=== PATIENT | female | born 1950 | race Caucasian/White ===

== ENCOUNTER 2021-05-13 22:00 | Inpatient (IN) | payer MEDICARE, SELFPAY ==
--- NOTE | ~2021-05-13 | XR_ITS ---
XR hip RT 2V w AP pelvis DATE: 05/13/2021 22:43 INDICATION: Right hip fracture TECHNIQUE: AP pelvis. AP and crosstable lateral views of right hip COMPARISON: None FINDINGS: There is a minimally displaced and impacted right subcapital femoral neck fracture. No evidence of left or right hip dislocation. The pubic symphysis and sacroiliac joints are intact. Levoscoliosis and degenerative change of the lumbar spine. Diffuse osteopenia. IMPRESSION: Right subcapital femoral neck fracture Reviewed, dictated and finalized at location A.
--- NOTE | ~2021-05-13 | XR_ITS ---
EXAMINATION: XR surgery orthopedic DATE: 05/14/2021 10:02 INDICATION: Right hip pinning TECHNIQUE: 2 fluoroscopic images of the right hip were obtained in AP and frog-leg lateral positions during procedure performed by Dr. Robins. Radiologist was not present for the imaging or procedure. The amount of fluoroscopy time used during this procedure was 0.7 minutes. COMPARISON: 05/13/2021 FINDINGS: Interval fixation with 3 lag screws across a subcapital fracture of the proximal left femur with mild dorsolateral impaction injury. Alignment remains near-anatomic. No other fractures identified. Mild osteoarthritis of the right hip. IMPRESSION: 1. Lag screw fixation of a subcapital fracture of the proximal right femur which remains in near-magdaleno omic alignment. Reviewed, dictated and finalized at location A. IMPRESSION: 1. Lag screw fixation of a subcapital fracture of the proximal right femur whic h remains in near-anatomic alignment.
--- NOTE | ~2021-05-13 | XR_ITS ---
XR chest 1V DATE: 05/13/2021 22:43 INDICATION: Preoperative evaluation TECHNIQUE: AP chest COMPARISON: None FINDINGS: A very large hiatal hernia is noted. Normal heart size. Aortic arch calcification. No hilar or mediastinal enlargement. No pulmonary infiltrate or consolidation, pleural effusion or pulmonary vascular congestion or pneumo thorax. Diffuse osteopenia. There is dextroscoliosis of the thoracic spine. IMPRESSION: No active cardiac pulmonary disease Aortic atherosclerosis Very large hiatal hernia Reviewed, dictated and finalized at location A.
[2021-05-13 21:45] VITALS: BMI 27.0
[2021-05-13 21:46] VITALS: BP 107/58; PULSE 86; RESP 20; TEMP 36.2; O2SAT 97
--- NOTE | 2021-05-13 22:08 | PM.IMHP ---
H&P: HPI History of Present Illness Date/Time: 05/13/21 22:08 This is a 70-year-old female patient who is a direct admit from [facility]. The patient stated that she was walking down 4 steps and when she got to the 2nd step she felt that maybe her toe got stuck on something and then she slid down the last 2 steps and fell on her right hip. She is not on any blood thinners. She denies hitting her head. The patient stated she really did have any pain and she was able to pull herself off the ground but she was not able to ambulate on the right leg. She could not apply any weight to it she could not bear weight. Due to weakness not because of the discomfort. She did have a hip x-ray two view within without pelvis which shows an impacted mildly angulated subcapital right femoral neck fracture. She was seen in ER by her primary care doctor Dr. reyna (who works as pcp and er) . the patient is alert orientated x3. She did recognize her physician which she saw him in the emergency room. The patient was refusing to take any pain medication. However the nurses explained to her at the outside hospital that she would be transported from the ER bed to a gurney to be transported to [facility]. The patient stated she has not had any previous surgeries and was anxious about coming to [place] and having some surgery. Dr. Robins had been notified and agrees to the consult on the patient according to the ER physician from the outside facility. The patient's blood pressure was initially high but it is thought that this was due to anxiety. She does have hypertension however repeat blood pressures were normal. 152/77. The patient was also tested for COVID-19 and was found to be negative. The patient did take Tylenol Extra Strength tablet at the outside facility. The patient denies hitting her head or losing consciousness. She has no other complaints. The patient is being admitted to inpatient services on the date of service of 05/13/2021. Chief Complaint: Right hip weakness with fall Review of Systems Review of Systems: All systems reviewed & are unremarkable except as noted in HPI and below Constitutional: Constitutional: Reports as per HPI and Reports no additional constitutional complaints Eyes: Eyes: Reports as per HPI and Reports no additional eye complaints ENT: Reports system reviewed and no additional complaints, except as documented and Reports Normal hearing present Cardiovascular: Cardiovascular: Reports no additional cardiovascular complaints Respiratory: Respiratory: Reports no additional respiratory complaints and Reports no additional respiratory complaints Gastrointestinal: Gastrointestinal: Reports as per HPI and Reports no additional gastrointestinal complaints Musculoskeletal: Musculoskeletal: Reports no additional musculoskeletal complaints Integumentary/Breasts: Skin/Breast: Reports system reviewed and no additional complaints, except as docu and Reports as per HPI Neurologic: Reports system reviewed and no additional complaints, except as documented, Reports as per HPI and Reports Normal hearing present Psychiatric: Psychiatric: Reports no additional psychiatric complaints and Reports as per HPI Endocrine: Endocrine: Reports no additional endocrine complaints Hematologic/Lymphatic: Hematologic/Lymphatic: Reports no additional hematologic/lymphatic complaints Allergic/Immunologic: Allergic/Immunologic: Reports no additional allergic/immunologic complaints [facility] Past Medical History Medical History (Updated 05/13/21 @ 22:17 by Vannessa Ramirez NP) Anemia Chronic lower back pain History of humerus fracture on the left which was conservatively treated by placing in a sling Hyperlipidemia Hypertension Hypothyroidism Osteoarthritis Osteoporosis Overactive bladder Surgical History Surgical History (Updated 05/13/21 @ 22:17 by Vannessa Ramirez NP) No pertinent past surgical history Family Hi
[2021-05-14] VITALS (16 sets, daily range): BP systolic 105–132; BP diastolic 56–80; PULSE 81–116; RESP 14–18; TEMP 35.9–36.7; O2SAT 92–100
[2021-05-14] MEDS: LACTATED RINGERS 1,000 ML 100 ML IV CONT (00:30)
[2021-05-14] MEDS: LOVASTATIN 20 MG TABLET PO ×2 (00:33→20:42)
[2021-05-14] MEDS: CYCLOBENZAPRINE HCL 5 MG TABLET PO (00:42)
[2021-05-14 01:12] LABS: Basophils Absolute Auto 0.1 K/mm3 (0.0-0.1); Basophils Percent Auto 0.8 % (0.2-1.2); Eosinophils Absolute Auto 0.1 K/mm3 (0-0.3); Eosinophils Percent Auto 0.9 % (0-4.4); Hematocrit 39.7 % (37.0-47.0); Hemoglobin 13.7 g/dL (12.0-15.0); Immature Granulocyte Absolute 0.03 K/mm3 (0.00-0.031); Immature Granulocyte Percent A 0.3 % (0-0.5); Lymphocytes Absolute Auto 0.85 K/mm3 (0.9-3.2); Lymphocytes Percent Auto 9.9 % (18.3-44.2); Mean Corpuscular HGB Conc 34.5 g/dl (32-36); Mean Corpuscular Hemoglobin 31.1 pg (26-34); Mean Platelet Volume 9.7 fl (7.4-10.4); Monocytes Absolute Auto 0.5 K/mm3 (0.1-0.6); Monocytes Percent Auto 5.7 % (2.6-8.5); Neutrophils Absolute Auto 7.1 K/mm3 (1.3-6.7); Neutrophils Percent Auto 82.4 % (45.5-73.1); Platelet Count Result 218 k/mm3 (150-375); Red Blood Count 4.41 M/mm3 (4.2-5.4); Red Cell Distribution Width 11.9 % (11.5-14.5); White Blood Count 8.6 K/mm3 (4.5-10.0)
[2021-05-14 01:14] LABS: Add Urine Microscopic? NO; Appearance Urine Clear (Clear); Bilirubin Urine Negative (Negative); Blood Urine Negative (Negative); Color Urine Yellow (Yellow); Glucose Urine UA Negative (Negative); Ketones Urine Negative (Negative); Leukocyte Esterase Ur Negative LEU/UL (Negative); Nitrate Urine Negative (Negative); Protein Urine Negative (Negative); Specific Grav Ur 1.014 (1.001-1.035); Urobilinogen Urine Negative mg/dL (<2.0)
[2021-05-14 01:27] LABS: Anion Gap 7 mmol/L (8-16); Blood Urea Nitrogen 25 mg/dL (7-17); Carbon Dioxide 27 mmol/L (22-30); Chloride 98 mmol/L (98-107); Estimated CRCL calculation 41 ml/min; Estimated Glomerular Filt Rate 49; Glucose 128 mg/dL (65-110); Magnesium 1.7 mg/dL (1.6-2.3); Potassium 3.9 mmol/L (3.4-5.0); Sodium 132 mmol/L (137-145)
[2021-05-14] MEDS: LEVOTHYROXINE SODIUM 50 MCG TABLET PO (05:38)
--- NOTE | 2021-05-14 06:15 | ADMGEN ---
On 05/13/21 @ 2114 This patient, Veronika Carter, was admitted to 2 Medical Room 251-. Patient/family oriented to hospital policies and general routines including ID bracelet, bed and alarms, visiting hours, pain management, procedures, bathroom and other care routines, personal items, smoking policy, room service/diet, and visiting hours. Information on how to activate the Rapid Response Team has been discussed. Patient/Family are encouraged to report perceived risks to care and to ask questions if they do not understand what they are told or what they should do.
[2021-05-14 06:50] LABS: Alanine Aminotransferase 12 U/L (4-35); Albumin Level 4.2 g/dL (3.5-5.1); Alkaline Phosphatase 74 U/L (38-126); Anion Gap 5 mmol/L (8-16); Aspartate Amino Transferase 26 U/L (14-36); Bilirubin,Total 1.3 mg/dL (0.2-1.3); Blood Urea Nitrogen 21 mg/dL (7-17); Calcium 9.7 mg/dL (8.4-10.2); Carbon Dioxide 30 mmol/L (22-30); Chloride 99 mmol/L (98-107); Estimated CRCL calculation 45 ml/min; Estimated Glomerular Filt Rate 55; Glucose 106 mg/dL (65-110); Potassium 3.7 mmol/L (3.4-5.0); Sodium 134 mmol/L (137-145)
--- NOTE | 2021-05-14 08:22 | PC.NURSE ---
Report called to Adam RN OR Nurse.
--- NOTE | 2021-05-14 08:30 | PC.NURSE ---
To OR via bed.
--- NOTE | 2021-05-14 08:46 | WPDANESEPP ---
Anes - Eval Pre Procedure Procedure: Operation Date: 05/14/21 09:30 Proposed Procedures p Hip Pinning Cannulated Screws(Right) - Hay Robins MD Date/Time: 05/14/21 08:46 Surgeon: Shimon Preop Diagnosis: right femoral neck fracture Pre Op Diagnosis: Right Femoral Neck Fracture Patient Data Age: 70 Gender: F Height: 1.7 m Weight: 78.3 kg Last Vital Signs Temp 98.1 F 05/14/21 03:33 Pulse 81 05/14/21 03:33 Resp 18 05/14/21 08:00 BP 105/59 L 05/14/21 03:33 Pulse Ox 97 05/14/21 08:00 Allergies Allergy/AdvReac Type Severity Reaction Status Date / Time No Known Allergies Allergy Verified 05/13/21 21:53 Home Medications Medication Instructions Recorded Confirmed Type alendronate [Fosamax] 70 mg PO WEEKLY 05/13/21 05/13/21 History amlodipine 10 mg PO DAILY 05/13/21 05/13/21 History celecoxib 200 mg PO DAILY PRN 05/13/21 05/13/21 History cyclobenzaprine 5 mg PO HS PRN 05/13/21 05/13/21 History ergocalciferol (vitamin D2) 1,250 mcg PO WEEKLY 05/13/21 05/13/21 History [Vitamin D2] ferrous sulfate 325 mg PO TID 05/13/21 05/13/21 History levothyroxine [Synthroid] 50 mcg PO DAILY 05/13/21 05/13/21 History lisinopril-hydrochlorothiazide 1 tablet PO BID 05/13/21 05/13/21 History lovastatin 20 mg PO HS 05/13/21 05/13/21 History solifenacin [Vesicare] 10 mg PO DAILY 05/13/21 05/13/21 History Laboratory Tests 05/14/21 05/14/21 05/14/21 00:59 01:01 01:01 WBC RBC Hgb Hct MCV MCH MCHC RDW Plt Count MPV Immature Gran % (Auto) Neut % (Auto) Lymph % (Auto) [place] % (Auto) Eos % (Auto) Baso % (Auto) Lymph # (Auto) [place] # (Auto) Eos # (Auto) Baso # (Auto) Abs Immat Gran (auto) Absolute Neuts (auto) Absolute Nucleated RBC Nucleated RBC % Sodium 132 mmol/L L mmol/L (137-145) Potassium 3.9 mmol/L mmol/L (3.4-5.0) Chloride 98 mmol/L mmol/L (98-107) Carbon Dioxide 27 mmol/L mmol/L (22-30) Anion Gap 7 mmol/L L mmol/L (8-16) BUN 25 mg/dL H mg/dL (7-17) Creatinine 1.10 mg/dL H mg/dL (0.7-1.0) Estim Creat Clear Calc 41 ml/min ml/min Estimated GFR 49 L (59 - ) Glucose 128 mg/dL H mg/dL (65-110) Calcium 10.0 mg/dL mg/dL (8.4-10.2) Magnesium 1.7 mg/dL mg/dL (1.6-2.3) Total Bilirubin AST ALT Alkaline Phosphatase Total Protein Albumin TSH (Reflex) Urine Color Yellow (Yellow) Urine Appearance Clear (Clear) Urine pH 5.0 (5.0-9.0) Ur Specific [place] 1.014 (1.001-1.035) Urine Protein Negative mg/dL mg/dL (Negative) Urine Glucose (UA) Negative mg/dL mg/dL (Negative) Urine Ketones Negative mg/dL mg/dL (Negative) Ur Blood (Man) Negative (Negative) Urine Nitrate Negative (Negative) Urine Bilirubin Negative (Negative) Urine Urobilinogen Negative mg/dL mg/dL (<2.0) Leukocyte Esterase Rfl Negative NIKKI/UL NIKKI/UL (Negative) Blood Type Antibody Screen 05/14/21 05/14/21 05/14/21 01:01 01:01 06:07 WBC 8.6 K/mm3 K/mm3 (4.5-10.0) RBC 4.41 M/mm3 M/mm3 (4.2-5.4) Hgb 13.7 g/dL g/dL (12.0-15.0) Hct 39.7 % % (37.0-47.0) MCV 90.0 fl fl (80-100) MCH 31.1 pg pg (26-34) MCHC 34.5 g/dl g/dl (32-36) RDW 11.9 % % (11.5-14.5) Plt Count 218 k/mm3 k/mm3 (150-375) MPV 9.7 fl fl (7.4-10.4) Immature Gran % (Auto) 0.3 % % (0-0
--- NOTE | 2021-05-14 08:49 | ECG_ITS ---
Measurements Intervals [place] Rate: 93 P: 53 NM: 167 QRS: 4 QRSD: 102 T: 9 QT: 348 QTc: 433 Interpretive Statements SINUS RHYTHM HIGH LATERAL INFARCT, AGE INDETERMINATE NONSPECIFIC ST & T-WAVE ABNORMALITY- ANT/INF LEADS BASELINE WANDER- I, II ABNORMAL ECG Electronically Signed On 05-14-2021 16:23:28 CDT by Gokul Anne D.O.
--- NOTE | 2021-05-14 08:53 | PM.CNOR ---
Assessment and Plan Assessment and plan (1) Subcapital fracture of neck of right femur: Qualifiers: Encounter type: initial encounter Fracture type: closed Qualified Code(s): S72.011A - Unspecified intracapsular fracture of right femur, initial encounter for closed fracture Code(s): S72.011A - Unspecified intracapsular fracture of right femur, initial encounter for closed fracture Status: Acute Assessment and Plan: 70-year-old female with an impacted right subcapital femoral neck fracture. I discussed with her the rationale for surgical stabilization with pinning in-situ. Plan on proceeding today. Risks and potential complications were discussed in detail and questions answered. History of Present Illness HPI Consult date: 05/14/21 Consult reason: fracture Chief complaint: Right Femoral Neck Fracture Narrative: 70-year-old female who lives in [place]. She fell going down her stairs yesterday when she tripped. She suffered a right femoral neck fracture. She was initially taken to the hospital and then daily a but apparently they are unable to fix femoral neck fractures she was transferred to [facility] for further evaluation and management. No other injuries with this occurrence. No loss of consciousness, no chest pain, no shortness of breath. Patient articulates to pain in her right hip and thigh. Review of Systems Constitutional: Constitutional: Denies chills and Denies fever(s) ENT: Reports system reviewed and no additional complaints, except as documented Cardiovascular: Cardiovascular: Denies chest pain Respiratory: Respiratory: Reports no additional respiratory complaints Gastrointestinal: Gastrointestinal: Denies abdominal pain PMFSH Past Medical History Medical History (Updated 05/14/21 @ 08:58 by Hay Robins MD) Anemia Chronic lower back pain History of humerus fracture on the left which was conservatively treated by placing in a sling Hyperlipidemia Hypertension Hypothyroidism Osteoarthritis Osteoporosis Overactive bladder Subcapital fracture of neck of right femur Surgical History Surgical History No pertinent past surgical history Family History Family History Father Acute myocardial infarction Congestive heart failure Hypertension Mother Diabetes mellitus Social History Social History Social History: the patient is lifelong nonsmoker. She does not use any alcohol marijuana or illicit drugs. She has 2 children. 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 She lives with her and he is the durable power civil rights attorney for healthcare. Code status full code Smoking status: Never smoker Alcohol intake: never Substance use: never Substance use type: does not use Spiritual care concerns: No Meds Home Medications and Allergies Home Medications Medication Instructions Recorded Confirmed Type alendronate [Fosamax] 70 mg PO WEEKLY 05/13/21 05/13/21 History amlodipine 10 mg PO DAILY 05/13/21 05/13/21 History celecoxib 200 mg PO DAILY PRN 05/13/21 05/13/21 History cyclobenzaprine 5 mg PO HS PRN 05/13/21 05/13/21 History ergocalciferol (vitamin D2) 1,250 mcg PO WEEKLY 05/13/21 05/13/21 History [Vitamin D2] ferrous sulfate 325 mg PO TID 05/13/21 05/13/21 History levothyroxine [Synthroid] 50 mcg PO DAILY 05/13/21 05/13/21 History lisinopril-hydrochlorothiazide 1 tablet PO BID 05/13/21 05/13/21 History lovastatin 20 mg PO HS 05/13/21 05/13/21 History solifenacin [Vesicare] 10 mg PO DAILY 05/13/21 05/13/21 History Allergies Allergy/AdvReac Type Severity Reaction Status Date / Time No Known Allergies Allergy Verified 05/13/21 21:53 Vital Signs Vital Signs - 24 hr 05/13/21 21:46 05/14/21 00:10 05/14/21 03:33 Temperature 97.2 F L
--- NOTE | 2021-05-14 08:54 | P.PNAN_ITS ---
Anes - Initial Pre Proc Eval Procedure: Operation Date: 05/14/21 09:30 Proposed Procedures p Hip Pinning Cannulated Screws(Right) - Hay Robins MD Date/Time: 05/14/21 08:54 Surgeon: Ani Arce PA-C Pre Op Diagnosis: Right Femoral Neck Fracture Patient Data Age: 70 Gender: F Height: 1.7 m Weight: 78.3 kg Last Vital Signs Temp 98.1 F 05/14/21 03:33 Pulse 81 05/14/21 03:33 Resp 18 05/14/21 08:00 BP 105/59 L 05/14/21 03:33 Pulse Ox 97 05/14/21 08:00 Allergies Allergy/AdvReac Type Severity Reaction Status Date / Time No Known Allergies Allergy Verified 05/13/21 21:53 Home Medications Medication Instructions Recorded Confirmed Type alendronate [Fosamax] 70 mg PO WEEKLY 05/13/21 05/13/21 History amlodipine 10 mg PO DAILY 05/13/21 05/13/21 History celecoxib 200 mg PO DAILY PRN 05/13/21 05/13/21 History cyclobenzaprine 5 mg PO HS PRN 05/13/21 05/13/21 History ergocalciferol (vitamin D2) 1,250 mcg PO WEEKLY 05/13/21 05/13/21 History [Vitamin D2] ferrous sulfate 325 mg PO TID 05/13/21 05/13/21 History levothyroxine [Synthroid] 50 mcg PO DAILY 05/13/21 05/13/21 History lisinopril-hydrochlorothiazide 1 tablet PO BID 05/13/21 05/13/21 History lovastatin 20 mg PO HS 05/13/21 05/13/21 History solifenacin [Vesicare] 10 mg PO DAILY 05/13/21 05/13/21 History Laboratory Tests 05/14/21 05/14/21 05/14/21 00:59 01:01 01:01 WBC RBC Hgb Hct MCV MCH MCHC RDW Plt Count MPV Immature Gran % (Auto) Neut % (Auto) Lymph % (Auto) [place] % (Auto) Eos % (Auto) Baso % (Auto) Lymph # (Auto) [place] # (Auto) Eos # (Auto) Baso # (Auto) Abs Immat Gran (auto) Absolute Neuts (auto) Absolute Nucleated RBC Nucleated RBC % Sodium 132 mmol/L L mmol/L (137-145) Potassium 3.9 mmol/L mmol/L (3.4-5.0) Chloride 98 mmol/L mmol/L (98-107) Carbon Dioxide 27 mmol/L mmol/L (22-30) Anion Gap 7 mmol/L L mmol/L (8-16) BUN 25 mg/dL H mg/dL (7-17) Creatinine 1.10 mg/dL H mg/dL (0.7-1.0) Estim Creat Clear Calc 41 ml/min ml/min Estimated GFR 49 L (59 - ) Glucose 128 mg/dL H mg/dL (65-110) Calcium 10.0 mg/dL mg/dL (8.4-10.2) Magnesium 1.7 mg/dL mg/dL (1.6-2.3) Total Bilirubin AST ALT
--- NOTE | 2021-05-14 08:59 | WPDHPUPDATE1 ---
History and Physical Update Update Date/Time: 05/14/21 08:59 History and Physical has been reviewed, including an updated exam of the patient. There are NO changes in the patient's condition. Risks, benefits, and alternatives have been discussed and questions answered. Patient agrees to proceed with procedure.
[2021-05-14] MEDS: ceFAZolin 2 GM/D5W 50 ML 2 GM/50 ML BAG IVPB ×2 (09:03→16:56)
[2021-05-14] MEDS: LIDO 1%/EPINEPHRINE 1:100,000 50 ML VIAL 10 ML INFILTRATE (09:46)
[2021-05-14] MEDS: LACTATED RINGERS 1,000 ML 30 ML IV CONT (10:17)
--- NOTE | 2021-05-14 10:23 | P.OP_ITS ---
Procedure Note - Detailed Date of Procedure 05/14/21 Pre-op Diagnosis Right Femoral Neck Fracture Post-op Diagnosis same Procedure Performed Pinning in-situ right femoral neck fracture Surgeon Hay Robins MD [employer] Rashida Eisenberg Anesthesia general Description of Procedure The patient was identified and proper site identified. She was taken to the operating room and after general anesthetic induction and intubation, she was transferred over to the fracture table positioning her supine the usual manner for fixation of right hip fracture. Care was taken to properly pad and position her torso and extremities. The subcapital femoral neck fracture was examined fluoroscopically and noted to be in the unchanged impacted position. The right hip and thigh was prepped and draped in usual sterile fashion. 10 ml of 1% lidocaine and epinephrine solution was infiltrated into the subcutaneous tissue and area incision. A longitudinal incision was made over the proximal aspect of the femur laterally. Subcutaneous tissue sharply dissected down to the ITB band which was divided in line with the incision. Under fluoroscopic visualization, the three guide pins were placed into the femoral neck and head. Over these guide pins the 6.5 cannulated screws were placed and then the pins removed. This was done with fluoroscopic visualization and then assess fluoroscopically to ensure the joint was not violated. Hardware position was satisfactory. The wound was irrigated with sterile saline. IT band was reapproximated with 0 Vicryl in the deeper layers of the subcu also with 0 Vicryl suture. Skin reapproximated with three 0 V lock and rosey. Sterile dressing was applied. She tolerated the procedure well. She was transferred back to the cart, awakened and extubated then taken to the recovery area in stable condition. There were no known intraoperative complications. Estimated blood loss 10 milliliters. She received perioperative antibiotics. Estimated Blood Loss 10 Drains No Packing No Pathology none sent Complications No immediate complications Condition stable Disposition PACU
--- NOTE | 2021-05-14 11:20 | PC.NURSE ---
Returned from OR via bed.
[2021-05-14] MEDS: hydroCHLOROthiazide 12.5 MG CAPSULE PO ×2 (11:35→20:42)
[2021-05-14] MEDS: amLODIPine BESYLATE 5 MG TABLET 10 MG PO (11:36)
[2021-05-14] MEDS: FERROUS SULFATE 324 MG TABLET PO ×2 (11:36→20:42)
[2021-05-14] MEDS: SOLIFENACIN 5 MG TABLET 10 MG PO (11:36)
[2021-05-14] MEDS: lisinopriL 20 MG TABLET PO ×2 (11:37→20:42)
[2021-05-14] MEDS: CELECOXIB 200 MG CAPSULE PO (11:37)
--- NOTE | 2021-05-14 14:51 | PM.IMPN ---
Progress Note: A&P Assessment and Plan (1) Subcapital fracture of neck of right femur: Qualifiers: Encounter type: initial encounter Fracture type: closed Qualified Code(s): S72.011A - Unspecified intracapsular fracture of right femur, initial encounter for closed fracture Code(s): S72.011A - Unspecified intracapsular fracture of right femur, initial encounter for closed fracture Status: Acute Assessment and Plan: Due to mechanical fall -status post right femoral pinning postop day 0 - Xarelto will be started tomorrow for DVT prophylaxis - PT and OT per ortho - will remove Dotson catheter tomorrow (2) Hypertension: Code(s): I10 - Essential (primary) hypertension Status: Chronic Assessment and Plan: last blood pressure 132/63 - continue amlodipine, hydrochlorothiazide and lisinopril (3) Hyperlipidemia: Code(s): E78.5 - Hyperlipidemia, unspecified Status: Chronic Assessment and Plan: chronic - continue lovastatin (4) Osteoporosis: Code(s): M81.0 - Age-related osteoporosis without current pathological fracture Status: Acute Assessment and Plan: will need further recommendations on Fosamax during this healing period (5) Hypothyroidism: Code(s): E03.9 - Hypothyroidism, unspecified Status: Chronic Assessment and Plan: TSH 2.9 - continue levothyroxine (6) Osteoarthritis: Code(s): M19.90 - Unspecified osteoarthritis, unspecified site Status: Chronic (7) Overactive bladder: Code(s): N32.81 - Overactive bladder Status: Chronic Assessment and Plan: continue with VESIcare (8) Chronic lower back pain: Code(s): M54.50 - Low back pain, unspecified; G89.29 - Other chronic pain Status: Chronic Assessment and Plan: no acute findings for complaints, continue with cyclobenzaprine p.r.n. Time Spent With Patient Time with patient: 25 - 35 minutes Subjective Date/time seen: 05/14/21 14:51 Interval history: Pt is a 70-year-old female here for right hip fracture. Patient stated that she simply had a mechanical fall and denied lightheadedness, dizziness or chest pain prior to the fall. She is currently not in any pain and has no numbness or tingling. She is eating and drinking well. She denies fevers, chills, dysuria, diarrhea or constipation. Patient states she has always had a convex chest and this is not abnormal for her Review of Systems Review of Systems: All systems reviewed & are unremarkable except as noted in HPI and below Exam Narrative: General: Well developed well nourished patient in NAD HEENT: normocephalic Neck: supple Neuro: Alert and oriented x4 CV:RRR. convex chest with no erythema or pain. Resp:CTA Abd: Soft, non distended. No pain to palpation. Positive bowel sounds Extremities: right leg with bandage attached with no excessive erythema, bleeding or bruising. Pulses and sensation intact. Objective Data Vital Signs Vital Signs: Vital Signs - 24 hr 05/13/21 21:46 05/14/21 00:10 05/14/21 03:33 Temperature 97.2 F L 97.7 F 98.1 F Pulse Rate 86 90 81 Respiratory Rate 20 18 18 Blood Pressure 107/58 L 116/76 105/59 L Pulse Oximetry 97 97 97 05/14/21 08:00 05/14/21 10:17 05/14/21 10:30 Temperature 96.7 F L Pulse Rate 116 H 108 H Respiratory Rate 18 18 18 Blood Pressure 127/74 120/80 Pulse Oximetry 97 100 100 05/14/21 10:35 05/14/21 10:45 05/14/21 11:00 Temperature Pulse Rate 95 95 Respiratory Rate 18 14 Blood Pressure 115/65 114/70 Pulse Oximetry 96 97 96 05/14/21 11:15 05/14/21 11:25 05/14/21 11:30 Temperature 97.2 F L Pulse Rate 97 96 Respiratory Rate 16 18 16 Blood Pressure 119/71 105/71 Pulse Oximetry 95 92 95 05/14/21 11:40 05/14/21 12:10 05/14/21 13:10 Temperature 97.3 F L 97.5 F L 97.1 F L Pulse Rate 93 91 100 Respiratory Rate 18 16 18
[2021-05-14] MEDS: DOCUSATE SODIUM 100 MG CAPSULE PO (16:56)
[2021-05-14] MEDS: FAMOTIDINE 20 MG TABLET PO (20:42)
[2021-05-15] VITALS (9 sets, daily range): BP systolic 101–140; BP diastolic 58–89; PULSE 80–89; RESP 16–20; TEMP 36.2–36.7; O2SAT 92–97
[2021-05-15] MEDS: ceFAZolin 2 GM/D5W 50 ML 2 GM/50 ML BAG IVPB ×2 (00:31→08:02)
--- NOTE | 2021-05-15 01:13 | PC.NURSE ---
Daylight Savings Time For Daylight Savings Time Ending in the Fall - Clocks are moved back. For Daylight Savings Time Beginning in the Spring - Clocks are moved ahead. For [facility], the time of change occurs at 0200 hrs. Time is taken from the server programmer. This entry on the patient's chart recognizes the change in time reflected during documentation. Example: 2 entries for vital signs may be charted for 0200 hrs.
[2021-05-15] MEDS: LEVOTHYROXINE SODIUM 50 MCG TABLET PO (06:17)
--- NOTE | 2021-05-15 07:34 | PM.PNORT ---
Progress Note: A&P Assessment and Plan (1) Subcapital fracture of neck of right femur: Qualifiers: Encounter type: initial encounter Fracture type: closed Qualified Code(s): S72.011A - Unspecified intracapsular fracture of right femur, initial encounter for closed fracture Code(s): S72.011A - Unspecified intracapsular fracture of right femur, initial encounter for closed fracture Status: Acute Assessment and Plan: 70-year-old female postop day one right hip pinning. Doing well. Will likely need placement before being able to head home. Therapy will be initiated today. Following. Subjective Subjective Date/Time Seen: 05/15/21 07:34 Post Op day: 1 Principal diagnosis: Status post pinning in situ right subcapital femoral neck fracture Interval history: 70-year-old female who is postop day one for right hip pinning for impacted subcapital femoral neck fracture. Her overnight stay has been uneventful. She is not having that much discomfort in her right hip area. Exam Const: General: cooperative, comfortable and no acute distress Nutritional Appearance: well nourished Orientation/consciousness: patient oriented x3 Limitations: no limitations HENMT: Head: normal to inspection Ears: hearing grossly normal bilaterally Face and sinus: face symmetric Mouth: Yes moist mucous membranes Teeth and gingiva: poor dentition Eyes: Alignment and Position: alignment normal and position normal Sclera: sclerae normal Neck: Neck: normal visual inspection and nontender Chest: Chest palpation & inspection: normal inspection of the chest Resp: Effort & Inspection: normal respiratory effort and able to speak in complete sentences GI: Inspection: other ( Nondistended, nontender) Skin: General skin exam: normal color Rashes: no rashes Neuro: General: patient oriented x3 Cognition (Neuro): normal cognition Speech: normal speech Gait exam (Neuro): Other gait observations present Extrem: General: normal to inspection and other Other: Exam of the right hip shows a dry incision. Grossly motor and sensory function intact to right lower extremity but exam is limited somewhat secondary to right hip discomfort. Calves are negative. Psych: Appearance: grossly normal Mental Status: mental status grossly normal Objective Data Vital Signs Vital Signs: Vital Signs - 24 hr 05/14/21 10:17 05/14/21 10:30 05/14/21 10:35 Temperature 96.7 F L Pulse Rate 116 H 108 H Respiratory Rate 18 18 Blood Pressure 127/74 120/80 Pulse Oximetry 100 100 96 05/14/21 10:45 05/14/21 11:00 05/14/21 11:15 Temperature Pulse Rate 95 95 97 Respiratory Rate 18 14 16 Blood Pressure 115/65 114/70 119/71 Pulse Oximetry 97 96 95 05/14/21 11:25 05/14/21 11:30 05/14/21 11:40 Temperature 97.2 F L 97.3 F L Pulse Rate 96 93 Respiratory Rate 18 16 18 Blood Pressure 105/71 114/61 Pulse Oximetry 92 95 95 05/14/21 12:10 05/14/21 13:10 05/14/21 17:10 Temperature 97.5 F L 97.1 F L 97.6 F Pulse Rate 91 100 100 Respiratory Rate 16 18 18 Blood Pressure 115/56 L 132/63 120/62 Pulse Oximetry 95 94 96 05/14/21 21:03 05/15/21 00:05 05/15/21 01:03 CDT Temperature 97.5 F L 97.4 F L Pulse Rate 87 83 Respiratory Rate 16 20 Blood Pressure 116/63 126/68 Pulse Oximetry 94 92 95 05/15/21 04:03 Temperature 98.0 F Pulse Rate 86 Respiratory Rate 16 Blood Pressure 120/64 Pulse Oximetry 93 Intake/Output Intake/Output: Intake & Output 05/12/21 05/13/21 05/14/21 05/15/21 23:59 23:59 23:59 22:59 Intake Total 1730 / 1730 550 / 550 Output Total 1660 / 1660 1100 / 1100 Balance 70 / 70 -550 / -550 Meds/Results Medications: Active Medications Generic Name Dose Route Start Last Admin Trade Name Corrine PRN Reason Stop Dose Admin Acetaminophen 650 mg 05/14/21 11:18 Acetaminophen 325 Mg Tablet PO Q6H PRN Mild Pain (1-3) or Fever Hydrocodone Bitart/Acetaminophen 1 tab 05/14/21 11:18
--- NOTE | 2021-05-15 07:51 | PM.IMPN ---
Progress Note: A&P Assessment and Plan (1) Subcapital fracture of neck of right femur: Qualifiers: Encounter type: initial encounter Fracture type: closed Qualified Code(s): S72.011A - Unspecified intracapsular fracture of right femur, initial encounter for closed fracture Code(s): S72.011A - Unspecified intracapsular fracture of right femur, initial encounter for closed fracture Status: Acute Assessment and Plan: Due to mechanical fall -status post right femoral pinning postop day 1 - continue Xarelto for DVT prophylaxis - PT and OT per ortho - will remove Dotson catheter (2) Hypertension: Code(s): I10 - Essential (primary) hypertension Status: Chronic Assessment and Plan: last blood pressure 120/64 - continue amlodipine, hydrochlorothiazide and lisinopril (3) Hyperlipidemia: Code(s): E78.5 - Hyperlipidemia, unspecified Status: Chronic Assessment and Plan: chronic - continue lovastatin (4) Osteoporosis: Code(s): M81.0 - Age-related osteoporosis without current pathological fracture Status: Acute Assessment and Plan: Will hold fosamax for 2 months due to acute fracture per Dr. Robins's recommendations (5) Hypothyroidism: Code(s): E03.9 - Hypothyroidism, unspecified Status: Chronic Assessment and Plan: TSH 2.9 - continue levothyroxine (6) Osteoarthritis: Code(s): M19.90 - Unspecified osteoarthritis, unspecified site Status: Chronic (7) Overactive bladder: Code(s): N32.81 - Overactive bladder Status: Chronic Assessment and Plan: continue with VESIcare -voiding trial today (8) Chronic lower back pain: Code(s): M54.50 - Low back pain, unspecified; G89.29 - Other chronic pain Status: Chronic Assessment and Plan: no acute findings for complaints, continue with cyclobenzaprine p.r.n. Subjective Date/time seen: 05/15/21 07:51 Interval history: Pt is a 70-year-old female here for right hip fracture. Patient was seen today with no complaints. Pt denies nausea, vomiting, fevers, chills, constipation, diarrhea, chest pain, sob, or abdominal pain. Pain is controlled and feels more like a 'soreness'. No numbness or tingling to ther LE. She has not had a bowel movement yet but does not feel constipated and think she will have 1 once she gets up and moves a little bit. Exam Narrative: General: Well developed well nourished patient in NAD HEENT: normocephalic Neck: supple Neuro: Alert and oriented x4 CV:RRR. convex chest with no erythema or pain. Resp:CTA Abd: Soft, non distended. No pain to palpation. Positive bowel sounds Extremities: right leg with bandage attached with no excessive erythema, bleeding or bruising. Pulses and sensation intact. Objective Data Vital Signs Vital Signs: Vital Signs - 24 hr 05/14/21 10:17 05/14/21 10:30 05/14/21 10:35 Temperature 96.7 F L Pulse Rate 116 H 108 H Respiratory Rate 18 18 Blood Pressure 127/74 120/80 Pulse Oximetry 100 100 96 05/14/21 10:45 05/14/21 11:00 05/14/21 11:15 Temperature Pulse Rate 95 95 97 Respiratory Rate 18 14 16 Blood Pressure 115/65 114/70 119/71 Pulse Oximetry 97 96 95 05/14/21 11:25 05/14/21 11:30 05/14/21 11:40 Temperature 97.2 F L 97.3 F L Pulse Rate 96 93 Respiratory Rate 18 16 18 Blood Pressure 105/71 114/61 Pulse Oximetry 92 95 95 05/14/21 12:10 05/14/21 13:10 05/14/21 17:10 Temperature 97.5 F L 97.1 F L 97.6 F Pulse Rate 91 100 100 Respiratory Rate 16 18 18 Blood Pressure 115/56 L 132/63 120/62 Pulse Oximetry 95 94 96 05/14/21 21:03 05/15/21 00:05 05/15/21 01:03 CDT Temperature 97.5 F L 97.4 F L Pulse Rate 87 83 Respiratory Rate 16 20 Blood Pressure 116/63 126/68 Pulse Oximetry 94 92 95 05/15/21 04:03 Temperature 98.0 F Pulse Rate 86 Respiratory Rate 16 Blood Pressure 120/64 Pulse Oxim
[2021-05-15] MEDS: lisinopriL 20 MG TABLET PO ×2 (08:03→20:29)
[2021-05-15] MEDS: ERGOCALCIFEROL 50,000 UNIT CAPSULE 50000 UNITS PO (08:04)
[2021-05-15] MEDS: amLODIPine BESYLATE 5 MG TABLET 10 MG PO (08:04)
[2021-05-15] MEDS: FAMOTIDINE 20 MG TABLET PO ×2 (08:04→20:29)
[2021-05-15] MEDS: DOCUSATE SODIUM 100 MG CAPSULE PO (08:04)
[2021-05-15] MEDS: hydrOXYzine pamoate 25 MG CAPSULE 50 MG PO (08:04)
[2021-05-15] MEDS: FERROUS SULFATE 324 MG TABLET PO ×3 (08:04→20:29)
[2021-05-15] MEDS: hydroCHLOROthiazide 12.5 MG CAPSULE PO (08:04)
[2021-05-15] MEDS: RIVAROXABAN 10 MG TABLET PO (08:05)
[2021-05-15] MEDS: SOLIFENACIN 5 MG TABLET 10 MG PO (08:05)
[2021-05-15 08:15] LABS: Anion Gap 7 mmol/L (8-16); Blood Urea Nitrogen 15 mg/dL (7-17); Calcium 8.9 mg/dL (8.4-10.2); Carbon Dioxide 28 mmol/L (22-30); Chloride 94 mmol/L (98-107); Estimated CRCL calculation 50 ml/min; Estimated Glomerular Filt Rate > 60; Glucose 99 mg/dL (65-110); Potassium 3.7 mmol/L (3.4-5.0); Sodium 129 mmol/L (137-145)
[2021-05-15 08:33] LABS: Basophils Percent Auto 0.4 % (0.2-1.2); Eosinophils Absolute Auto 0.1 K/mm3 (0-0.3); Eosinophils Percent Auto 0.9 % (0-4.4); Hematocrit 36.1 % (37.0-47.0); Hemoglobin 12.1 g/dL (12.0-15.0); Immature Granulocyte Absolute 0.02 K/mm3 (0.00-0.031); Immature Granulocyte Percent A 0.2 % (0-0.5); Lymphocytes Absolute Auto 0.99 K/mm3 (0.9-3.2); Mean Corpuscular HGB Conc 33.5 g/dl (32-36); Mean Corpuscular Hemoglobin 30.8 pg (26-34); Mean Corpuscular Volume 91.9 fl (80-100); Mean Platelet Volume 10.2 fl (7.4-10.4); Monocytes Absolute Auto 0.6 K/mm3 (0.1-0.6); Monocytes Percent Auto 6.7 % (2.6-8.5); Neutrophils Absolute Auto 7.2 K/mm3 (1.3-6.7); Neutrophils Percent Auto 80.8 % (45.5-73.1); Platelet Count Result 192 k/mm3 (150-375); Red Blood Count 3.93 M/mm3 (4.2-5.4); Red Cell Distribution Width 11.9 % (11.5-14.5)
[2021-05-15] MEDS: ACETAMINOPHEN 325 MG TABLET 650 MG PO (12:21)
--- NOTE | 2021-05-15 15:31 | PC.NURSE ---
a bladder scan was performed on pt 6 hours after rendon catheter was removed. pt stated she needed to use the toilet so I scanned her before assisting her to the toilet. The bladder scan revealed 324 mL of urine. I will rescan pt after she has completed using the toilet.
--- NOTE | 2021-05-15 15:43 | PC.NURSE ---
pt had a bowel movement but claims to have not urinated. pt was asked if she has urinated since the rendon catheter was removed to which she claims she has not. pt was told that if she does not urinate soon and enough that she will have to be straight cathed to which pt replied, I will drink some more water and try and go.
--- NOTE | 2021-05-15 17:00 | PC.NURSE ---
pt urinated approximately 100mL of yellow clear urine. Performed a residual bladder scan which revealed 273 mL of urine in the bladder. Will continue to monitor
[2021-05-15] MEDS: HYDROcodone/acetaminophen (*CRX) 5-325 MG TABLET 1 TAB PO (20:29)
[2021-05-15] MEDS: LOVASTATIN 20 MG TABLET PO (20:29)
[2021-05-16] VITALS (7 sets, daily range): BP systolic 105–123; BP diastolic 58–70; PULSE 78–92; RESP 16–18; TEMP 35.7–36.4; O2SAT 91–96
[2021-05-16] MEDS: LEVOTHYROXINE SODIUM 50 MCG TABLET PO (05:34)
[2021-05-16 05:47] LABS: Hematocrit 37.9 % (37.0-47.0); Hemoglobin 12.8 g/dL (12.0-15.0); Mean Corpuscular HGB Conc 33.8 g/dl (32-36); Mean Corpuscular Hemoglobin 30.9 pg (26-34); Mean Corpuscular Volume 91.5 fl (80-100); Mean Platelet Volume 9.7 fl (7.4-10.4); Platelet Count Result 194 k/mm3 (150-375); Red Blood Count 4.14 M/mm3 (4.2-5.4); Red Cell Distribution Width 12.1 % (11.5-14.5); White Blood Count 7.6 K/mm3 (4.5-10.0)
[2021-05-16 06:22] LABS: Anion Gap 8 mmol/L (8-16); Blood Urea Nitrogen 14 mg/dL (7-17); Carbon Dioxide 28 mmol/L (22-30); Chloride 95 mmol/L (98-107); Estimated CRCL calculation 45 ml/min; Estimated Glomerular Filt Rate 55; Glucose 100 mg/dL (65-110); Magnesium 1.9 mg/dL (1.6-2.3); Potassium 4.4 mmol/L (3.4-5.0); Sodium 131 mmol/L (137-145)
[2021-05-16] MEDS: FERROUS SULFATE 324 MG TABLET PO ×3 (08:34→20:05)
[2021-05-16] MEDS: FAMOTIDINE 20 MG TABLET PO ×2 (08:34→20:05)
[2021-05-16] MEDS: DOCUSATE SODIUM 100 MG CAPSULE PO ×2 (08:35→17:35)
[2021-05-16] MEDS: RIVAROXABAN 10 MG TABLET PO (08:36)
[2021-05-16] MEDS: SOLIFENACIN 5 MG TABLET 10 MG PO (08:37)
[2021-05-16] MEDS: amLODIPine BESYLATE 5 MG TABLET 10 MG PO (08:37)
[2021-05-16] MEDS: lisinopriL 20 MG TABLET PO ×2 (08:40→20:05)
--- NOTE | 2021-05-16 08:40 | PM.DS ---
DS: Discharge Diagnosis Discharge Diagnosis (1) Hyponatremia: Code(s): E87.1 - Hypo-osmolality and hyponatremia Status: Acute DS: Summary Hospital Course Hospital Course: DOS 05/16/21 Time Spent with Patient Time attestation: Total time spent providing and/or coordinating discharge services: DS: Data Data Completed and Pending Labs on day of discharge: Labs from last 24 hours 05/16/21 05/16/21 05:38 05:38 WBC 7.6 RBC 4.14 L Hgb 12.8 Hct 37.9 MCV 91.5 MCH 30.9 MCHC 33.8 RDW 12.1 Plt Count 194 MPV 9.7 Sodium 131 L Potassium 4.4 Chloride 95 L Carbon Dioxide 28 Anion Gap 8 BUN 14 Creatinine 1.00 Estim Creat Clear Calc 45 Estimated GFR 55 L Glucose 100 Calcium 9.0 Magnesium 1.9 Discharge Plan Discharge Attending physician on discharge: Christiano Lazaro Consulting providers: Hay Robins Discharging Clinician: Ani Arce Activity: other - see discharge instructions Discharge Instructions: General Medicine Instructions: -please note your medications have changed. Do not take your Fosamax until July 11 as this needs to be held due to your new fracture. -follow-up with Dr. Robins, orthopedist, as recommended. -follow-up with your primary care physician in 1-2 weeks about this stay -You are now on a blood thinner . This will make you bleed easier. If you have a wound or scrape yourself, you will need to hold pressure for a longer period of time. If you fall or hit your head, you will need to seek medical attention right away. Stop and call your doctor if you start to have dark tary stools as this can indicate internal bleeding. Do not take ibuprofen while on this. -worrisome signs and symptoms to come back to emergency room for: Chest pain, shortness of breath, fevers 100.4 or greater, progressive significant weakness, or any other worrisome symptom. Ortho/weight bearing instructions: Follow-up/Referrals: Hay Robins MD [Physician] - Call for Appointment Discharge Medications: New acetaminophen [Mapap (acetaminophen)] 325 mg Tablet 650 mg PO Q6H PRN (Reason: pain ) Qty: 30 RF: 0 Continued celecoxib 200 mg capsule 200 mg PO DAILY PRN (Reason: Pain) RF: 0 lisinopril-hydrochlorothiazide 20-12.5 mg tablet 1 tablet PO BID RF: 0 amlodipine 10 mg tablet 10 mg PO DAILY RF: 0 levothyroxine [Synthroid] 50 mcg tablet 50 mcg PO DAILY RF: 0 ferrous sulfate 325 mg (65 mg iron) tablet 325 mg PO TID RF: 0 ergocalciferol (vitamin D2) [Vitamin D2] 1,250 mcg (50,000 unit) capsule 1,250 mcg PO WEEKLY RF: 0 lovastatin 20 mg tablet 20 mg PO HS RF: 0 cyclobenzaprine 5 mg tablet 5 mg PO HS PRN (Reason: Spasms) RF: 0 solifenacin [Vesicare] 10 mg tablet 10 mg PO DAILY RF: 0 Held alendronate [Fosamax] 70 mg tablet 70 mg PO WEEKLY RF: 0 Hold Instructions: Resume on 07/11/21. Date of admission: 05/13/21 22:00 Primary Care Provider: UNKNOWN,DOCTOR Admitting Provider: Bobbi Burns Attending physician on admission: Ani Arce Quality VTE Prophylaxis VTE prophylaxis: mechanical ordered
[2021-05-16] MEDS: HYDROcodone/acetaminophen (*CRX) 5-325 MG TABLET 1 TAB PO (08:44)
[2021-05-16] MEDS: ONDANSETRON INJ 4 MG/2 ML VIAL IV PUSH (09:56)
--- NOTE | 2021-05-16 10:54 | PM.PNORT ---
Progress Note: A&P Assessment and Plan (1) Subcapital fracture of neck of right femur: Qualifiers: Encounter type: initial encounter Fracture type: closed Qualified Code(s): S72.011A - Unspecified intracapsular fracture of right femur, initial encounter for closed fracture Code(s): S72.011A - Unspecified intracapsular fracture of right femur, initial encounter for closed fracture Status: Acute Assessment and Plan: 70 year old female post of day 2 of right hip pinning. She is overall doing well with therapy except for going upstairs. She is unable to do so due to lack of strength in her UE. She states that she has multiple family members at home that will be able to care for her and she does not need to use stairs once she is in the house. The bandage was changed today and she was instructed to do this daily. She will also be toe touching for 8 weeks and she has been doing this with her therapy. She will begin taking a full strength aspirin for DVT prophylaxis. She will follow up in our office in 2 weeks for wound check. Subjective Subjective Date/Time Seen: 05/16/21 10:54 Review of Systems Constitutional: Constitutional: Denies chills and Denies fever(s) ENT: Reports system reviewed and no additional complaints, except as documented Cardiovascular: Cardiovascular: Denies chest pain Respiratory: Respiratory: Reports no additional respiratory complaints Gastrointestinal: Gastrointestinal: Denies abdominal pain Musculoskeletal: Musculoskeletal: Reports abnormal gait (uses walker, toe touch. However, unable to walk upstairs due to UE weakness) Neurologic: Denies numbness, Denies tingling and Denies paresthesias Exam Const: General: cooperative, comfortable and no acute distress Nutritional Appearance: well nourished Orientation/consciousness: patient oriented x3 Limitations: no limitations HENMT: Head: normal to inspection Ears: hearing grossly normal bilaterally Face and sinus: face symmetric Mouth: Yes moist mucous membranes Teeth and gingiva: poor dentition Eyes: Alignment and Position: alignment normal and position normal Sclera: sclerae normal Neck: Neck: normal visual inspection and nontender Chest: Chest palpation & inspection: normal inspection of the chest Resp: Effort & Inspection: normal respiratory effort and able to speak in complete sentences GI: Inspection: other ( Nondistended, nontender) Skin: General skin exam: normal color Rashes: no rashes Neuro: General: patient oriented x3 Cognition (Neuro): normal cognition Speech: normal speech Gait exam (Neuro): Other gait observations present Extrem: General: normal to inspection and other Other: Exam of the right hip shows a clean and dry incision. [place] intact and no drainage present. Grossly motor and sensory function intact to right lower extremity but exam is limited somewhat secondary to right hip discomfort. Calves negative. Psych: Appearance: grossly normal Mental Status: mental status grossly normal Objective Data Vital Signs Vital Signs: Vital Signs - 24 hr 05/15/21 14:03 05/15/21 18:00 05/15/21 19:19 Temperature 97.8 F 97.2 F L 97.9 F Pulse Rate 80 81 89 Respiratory Rate 18 18 17 Blood Pressure 101/61 122/58 L 140/86 Pulse Oximetry 92 94 94 05/15/21 20:00 05/15/21 23:02 05/16/21 00:00 Temperature 96.7 F L Pulse Rate 89 78 Respiratory Rate 17 17 Blood Pressure 114/63 Pulse Oximetry 94 92 93 05/16/21 02:59 05/16/21 08:41 Temperature 96.2 F L 97.6 F Pulse Rate 92 87 Respiratory Rate 18 16 Blood Pressure 118/63 105/58 L Pulse Oximetry 95 96 Intake/Output Intake/Output: Intake & Output 05/14/21 05/15/21 05/15/21 05/16/21 00:59 00:59 23:59 23:59 Intake Total 290 Output Total 900 Balance -610 Meds/Results Medications: Active Medications Generic Name Dose Route Start Last Admin Trade Name Freq PRN Reason Stop Dose Admin Acetaminophen 650 mg
--- NOTE | 2021-05-16 15:23 | PM.IMPN ---
Progress Note: A&P Assessment and Plan (1) Subcapital fracture of neck of right femur: Qualifiers: Encounter type: initial encounter Fracture type: closed Qualified Code(s): S72.011A - Unspecified intracapsular fracture of right femur, initial encounter for closed fracture Code(s): S72.011A - Unspecified intracapsular fracture of right femur, initial encounter for closed fracture Status: Acute Assessment and Plan: Due to mechanical fall -status post right femoral pinning postop day 2 - continue Xarelto for DVT prophylaxis but will discharge on aspirin per Ortho - PT and OT per ortho -discharge delayed due to inability to do stairs with physical therapy today. Patient is going to try again tomorrow. If she is unable to do stairs tomorrow she may have to go to SNF. She really wants to go home with home health with her to help her. (2) Hypertension: Code(s): I10 - Essential (primary) hypertension Status: Chronic Assessment and Plan: last blood pressure 123/70 - continue amlodipine, hydrochlorothiazide and lisinopril (3) Osteoporosis: Code(s): M81.0 - Age-related osteoporosis without current pathological fracture Status: Acute Assessment and Plan: Will hold fosamax for 2 months due to acute fracture per Dr. Robins's recommendations (4) Hypothyroidism: Code(s): E03.9 - Hypothyroidism, unspecified Status: Chronic Assessment and Plan: TSH within normal limits. Continue levothyroxine (5) Hyponatremia: Code(s): E87.1 - Hypo-osmolality and hyponatremia Status: Acute Assessment and Plan: Improved to 131 today, likely low due to pain -will stop hydrochlorothiazide -no neurological dysfunction Subjective Date/time seen: 05/16/21 15:23 Interval history: Pt is a 70-year-old female here for right hip fracture. Patient was seen today with no complaints. Pt denies nausea, vomiting, fevers, chills, constipation, diarrhea, chest pain, sob, or abdominal pain. Pain is controlled. No numbness or tingling to lower extremities. Patient lives at home with her and there are couple stairs going into the house. Exam Narrative: General: Well developed well nourished patient in NAD HEENT: normocephalic Neck: supple Neuro: Alert and oriented x4 CV:RRR. convex chest with no erythema or pain. Resp:CTA Abd: Soft, non distended. No pain to palpation. Positive bowel sounds Extremities: right leg with bandage attached with no excessive erythema, bleeding or bruising. Pulses and sensation intact. Objective Data Vital Signs Vital Signs: Vital Signs - 24 hr 05/15/21 18:00 05/15/21 19:19 05/15/21 20:00 Temperature 97.2 F L 97.9 F Pulse Rate 81 89 89 Respiratory Rate 18 17 17 Blood Pressure 122/58 L 140/86 Pulse Oximetry 94 94 94 05/15/21 23:02 05/16/21 00:00 05/16/21 02:59 Temperature 96.7 F L 96.2 F L Pulse Rate 78 92 Respiratory Rate 17 18 Blood Pressure 114/63 118/63 Pulse Oximetry 92 93 95 05/16/21 08:41 05/16/21 12:48 Temperature 97.6 F 97.1 F L Pulse Rate 87 84 Respiratory Rate 16 18 Blood Pressure 105/58 L 123/70 Pulse Oximetry 96 96 Intake/Output Intake/Output: Intake & Output 05/14/21 05/15/21 05/15/21 05/16/21 00:59 00:59 23:59 23:59 Intake Total 530 Output Total 900 Balance -370 Meds/Results Medications: Active Medications Generic Name Dose Route Start Last Admin Trade Name Freq PRN Reason Stop Dose Admin Acetaminophen 650 mg 05/14/21 11:18 05/15/21 12:21 Acetaminophen 325 Mg Tablet PO 650 mg Q6H PRN Administration Mild Pain (1-3) or Fever Hydrocodone Bitart/Acetaminophen 1 tab 05/14/21 11:18 05/16/21 08:44 Hydrocodone/Acetaminophen (*Crx) 5-325 Mg Tablet PO 1 tab Q3H PRN Administration Pain Rated 4-6 Amlodipine Besylate 10 mg 05/14/21 09:00 05/16/21 08:37 Amlodipine Besylate 5 Mg T
[2021-05-16] MEDS: LOVASTATIN 20 MG TABLET PO (20:05)
[2021-05-17 03:12] VITALS: BP 121/70; PULSE 85; RESP 18; TEMP 35.8; O2SAT 94
[2021-05-17] MEDS: LEVOTHYROXINE SODIUM 50 MCG TABLET PO (06:16)
--- NOTE | 2021-05-17 07:49 | PM.PNORT ---
Progress Note: A&P Assessment and Plan (1) Subcapital fracture of neck of right femur: Qualifiers: Encounter type: initial encounter Fracture type: closed Qualified Code(s): S72.011A - Unspecified intracapsular fracture of right femur, initial encounter for closed fracture Code(s): S72.011A - Unspecified intracapsular fracture of right femur, initial encounter for closed fracture Status: Acute Assessment and Plan: No changes since yesterday's exam. We will continue to see patient in 2 weeks in our office for follow-up. She will take the 325 mg aspirin daily for DVT prophylaxis. She will be toe-touch with a walker for 8 weeks. She does have difficulty with going up stairs but I suspect this will get better with time, especially once she is able to be full weight-bearing on her leg. Subjective Subjective Date/Time Seen: 05/17/21 07:49 70-year-old female postop day 3 right hip pinning. She was feeling nauseated yesterday but doing much better this morning. No new significant findings since yesterday's visit. Review of Systems Constitutional: Constitutional: Denies chills and Denies fever(s) ENT: Reports system reviewed and no additional complaints, except as documented Cardiovascular: Cardiovascular: Denies chest pain Respiratory: Respiratory: Reports no additional respiratory complaints Gastrointestinal: Gastrointestinal: Denies abdominal pain Musculoskeletal: Musculoskeletal: Reports abnormal gait (uses walker, toe touch. However, unable to walk upstairs due to UE weakness) Integumentary/Breasts: Skin/Breast: Reports wounds ( Surgical wound to anterior right hip) Neurologic: Denies numbness, Denies tingling and Denies paresthesias Exam Const: General: cooperative, comfortable and no acute distress Nutritional Appearance: well nourished Orientation/consciousness: patient oriented x3 Limitations: no limitations HENMT: Head: normal to inspection Ears: hearing grossly normal bilaterally Face and sinus: face symmetric Mouth: Yes moist mucous membranes Teeth and gingiva: poor dentition Eyes: Alignment and Position: alignment normal and position normal Sclera: sclerae normal Neck: Neck: normal visual inspection and nontender Chest: Chest palpation & inspection: normal inspection of the chest Resp: Effort & Inspection: normal respiratory effort and able to speak in complete sentences GI: Inspection: other ( Nondistended, nontender) Skin: General skin exam: normal color Rashes: no rashes Neuro: General: patient oriented x3 Cognition (Neuro): normal cognition Speech: normal speech Gait exam (Neuro): Other gait observations present Extrem: General: normal to inspection and other Other: Exam of the right hip shows a clean and dry incision. [place] intact and no drainage present. motor and sensory function of the right hip is intact. Calves negative. Psych: Appearance: grossly normal Mental Status: mental status grossly normal Objective Data Vital Signs Vital Signs: Vital Signs - 24 hr 05/16/21 08:41 05/16/21 12:48 05/16/21 19:44 Temperature 97.6 F 97.1 F L 96.8 F L Pulse Rate 87 84 86 Respiratory Rate 16 18 16 Blood Pressure 105/58 L 123/70 118/68 Pulse Oximetry 96 96 91 05/16/21 20:00 05/16/21 22:39 05/17/21 03:12 Temperature 96.5 F L Pulse Rate 86 85 Respiratory Rate 16 18 Blood Pressure 121/70 Pulse Oximetry 91 92 94 Intake/Output Intake/Output: Intake & Output 05/15/21 05/15/21 05/16/21 05/17/21 00:59 23:59 23:59 23:59 Intake Total 1070 200 Output Total 2100 450 Balance -1030 -250 Meds/Results Medications: Active Medications Generic Name Dose Route Start Last Admin Trade Name Freq PRN Reason Stop Dose Admin Acetaminophen 650 mg 05/14/21 11:18 05/15/21 12:21 Acetaminophen 325 Mg Tablet PO 650 mg Q6H PRN Administration Mild Pain (1-3) or Fever Hydrocodone Bitart/Acetaminophen 1 tab 05/14/21 11:18
[2021-05-17] MEDS: FERROUS SULFATE 324 MG TABLET PO ×3 (08:56→20:06)
[2021-05-17] MEDS: SOLIFENACIN 5 MG TABLET 10 MG PO (08:56)
[2021-05-17] MEDS: amLODIPine BESYLATE 5 MG TABLET 10 MG PO (08:56)
[2021-05-17] MEDS: DOCUSATE SODIUM 100 MG CAPSULE PO ×2 (08:56→18:26)
[2021-05-17] MEDS: FAMOTIDINE 20 MG TABLET PO ×2 (08:56→20:06)
[2021-05-17] MEDS: RIVAROXABAN 10 MG TABLET PO (08:56)
[2021-05-17] MEDS: lisinopriL 20 MG TABLET PO ×2 (08:56→20:06)
--- NOTE | 2021-05-17 10:39 | PM.IMPN ---
Progress Note: A&P Assessment and Plan (1) Discharge planning issues: Code(s): Z02.9 - Encounter for administrative examinations, unspecified Status: Acute Assessment and Plan: Pt unable to leave the hospital until the ramp is finished at her house. This should be done tomorrow and she can be discharged then. (2) Subcapital fracture of neck of right femur: Qualifiers: Encounter type: initial encounter Fracture type: closed Qualified Code(s): S72.011A - Unspecified intracapsular fracture of right femur, initial encounter for closed fracture Code(s): S72.011A - Unspecified intracapsular fracture of right femur, initial encounter for closed fracture Status: Acute Assessment and Plan: Due to mechanical fall -status post right femoral pinning postop day 3 -continue Xarelto for DVT prophylaxis but will discharge on aspirin per Ortho -PT and OT per ortho -discharge delayed due to inability to do stairs with physical therapy yesterday. See above. (3) Hypertension: Code(s): I10 - Essential (primary) hypertension Status: Chronic Assessment and Plan: last blood pressure 121/70 - continue amlodipine and lisinopril (4) Osteoporosis: Code(s): M81.0 - Age-related osteoporosis without current pathological fracture Status: Acute Assessment and Plan: Will hold fosamax for 2 months due to acute fracture per Dr. Robins's recommendations (5) Hypothyroidism: Code(s): E03.9 - Hypothyroidism, unspecified Status: Chronic Assessment and Plan: TSH within normal limits. Continue levothyroxine (6) Hyponatremia: Code(s): E87.1 - Hypo-osmolality and hyponatremia Status: Acute Assessment and Plan: Improved to 131 yesterday -hydrochlorothiazide stopped -no neurological dysfunction Subjective Date/time seen: 05/17/21 10:39 Interval history: Pt is a 70-year-old female here for right hip fracture. Patient was seen today with no complaints. Pt denies nausea, vomiting, fevers, chills, constipation, diarrhea, chest pain, sob, or abdominal pain. Pain is controlledHe would like to continue with Tylenol. She does not like the way [place] makes her feel. No numbness or tingling to lower extremities. Patient lives at home with her and they have a few stairs going into the home. She has not been able to do the stairs here and her is planning on building a ramp that will be done tomorrow. Exam Narrative: General: Well developed well nourished patient in NAD HEENT: normocephalic Neck: supple Neuro: Alert and oriented x4 CV:RRR. convex chest with no erythema or pain. Resp:CTA Abd: Soft, non distended. No pain to palpation. Positive bowel sounds Extremities: right leg with bandage attached with no excessive erythema, bleeding or bruising. Pulses and sensation intact. Objective Data Vital Signs Vital Signs: Vital Signs - 24 hr 05/16/21 12:48 05/16/21 19:44 05/16/21 20:00 Temperature 97.1 F L 96.8 F L Pulse Rate 84 86 86 Respiratory Rate 18 16 16 Blood Pressure 123/70 118/68 Pulse Oximetry 96 91 91 05/16/21 22:39 05/17/21 03:12 Temperature 96.5 F L Pulse Rate 85 Respiratory Rate 18 Blood Pressure 121/70 Pulse Oximetry 92 94 Intake/Output Intake/Output: Intake & Output 05/15/21 05/15/21 05/16/21 05/17/21 00:59 23:59 23:59 23:59 Intake Total 1070 440 Output Total 2100 450 Balance -1030 -10 Meds/Results Medications: Active Medications Generic Name Dose Route Start Last Admin Trade Name Freq PRN Reason Stop Dose Admin Acetaminophen 650 mg 05/14/21 11:18 05/15/21 12:21 Acetaminophen 325 Mg Tablet PO 650 mg Q6H PRN Administration Mild Pain (1-3) or Fever Hydrocodone Bitart/Acetaminophen 1 tab 05/14/21 11:18 05/16/21 08:44 Hydrocodone/Acetaminophen (*Crx) 5-325 Mg Tablet PO 1 tab Q3H PRN Administration
[2021-05-17] MEDS: ACETAMINOPHEN 325 MG TABLET 650 MG PO (19:40)
[2021-05-17] MEDS: LOVASTATIN 20 MG TABLET PO (20:06)
[2021-05-17 22:00] VITALS: BP 122/63; PULSE 80; RESP 16; TEMP 36.4; O2SAT 96
[2021-05-18 06:00] VITALS: BP 115/70; PULSE 73; RESP 18; TEMP 35.9; O2SAT 94
[2021-05-18 06:12] LABS: Anion Gap 8 mmol/L (8-16); Blood Urea Nitrogen 23 mg/dL (7-17); Calcium 8.6 mg/dL (8.4-10.2); Carbon Dioxide 25 mmol/L (22-30); Chloride 97 mmol/L (98-107); Estimated CRCL calculation 45 ml/min; Estimated Glomerular Filt Rate 55; Glucose 98 mg/dL (65-110); Potassium 4.1 mmol/L (3.4-5.0); Sodium 130 mmol/L (137-145)
[2021-05-18] MEDS: LEVOTHYROXINE SODIUM 50 MCG TABLET PO (06:12)
[2021-05-18] MEDS: RIVAROXABAN 10 MG TABLET PO (09:29)
[2021-05-18] MEDS: FAMOTIDINE 20 MG TABLET PO (09:29)
[2021-05-18] MEDS: SOLIFENACIN 5 MG TABLET 10 MG PO (09:30)
[2021-05-18] MEDS: FERROUS SULFATE 324 MG TABLET PO ×2 (09:30→12:01)
[2021-05-18] MEDS: DOCUSATE SODIUM 100 MG CAPSULE PO (09:30)
[2021-05-18] MEDS: lisinopriL 20 MG TABLET PO (09:30)
[2021-05-18] MEDS: amLODIPine BESYLATE 5 MG TABLET 10 MG PO (09:30)
[2021-05-18 10:00] VITALS: BP 118/71; PULSE 90; RESP 16; TEMP 36.7; O2SAT 98
--- NOTE | 2021-05-18 10:57 | PM.DS ---
DS: Admitting Diagnosis Discharge Date 05/18/21 Admitting Diagnosis hip fx DS: Discharge Diagnosis Discharge Diagnosis (1) Discharge planning issues: Code(s): Z02.9 - Encounter for administrative examinations, unspecified Status: Acute Assessment and Plan: Discharge was delayed 1 day due to patient home ramp not being finished on time. (2) Subcapital fracture of neck of right femur: Qualifiers: Encounter type: initial encounter Fracture type: closed Qualified Code(s): S72.011A - Unspecified intracapsular fracture of right femur, initial encounter for closed fracture Code(s): S72.011A - Unspecified intracapsular fracture of right femur, initial encounter for closed fracture Status: Acute Assessment and Plan: Due to mechanical fall -status post right femoral pinning postop day 4 -discharged on aspirin for DVT prophylaxis -f/u with ortho -did well with therapy and was able to go to home with home health for PT/OT (3) Hypertension: Code(s): I10 - Essential (primary) hypertension Status: Chronic Assessment and Plan: last blood pressure 118/71 - continue amlodipine and lisinopril (4) Osteoporosis: Code(s): M81.0 - Age-related osteoporosis without current pathological fracture Status: Acute Assessment and Plan: Will hold fosamax for 2 months due to acute fracture per Dr. Robins's recommendations (5) Hypothyroidism: Code(s): E03.9 - Hypothyroidism, unspecified Status: Chronic Assessment and Plan: TSH within normal limits. Continue levothyroxine (6) Hyponatremia: Code(s): E87.1 - Hypo-osmolality and hyponatremia Status: Acute Assessment and Plan: 130 at discharge (132 on admission), likely due to pain DS: Summary Hospital Course Hospital Course: date of service 05/18/2021 patient is a 70-year-old female who presented to an outside area hospital for a mechanical fall down 2 stairs with hip pain. x-ray showed right subcapital for more home neck fracture. she was transferred here for orthopedic consult. She underwent a pinning of the right femoral neck on 05/14/2021. she had no complications and did well with this. During her stay she did have slight hyponatremia which was likely due to pain. The patient did well with physical therapy and did not want to go to SNF. Her built a ramp so she could get into the house and she is going to continue home therapy. please see above for further details. patient was feeling well the day of discharge and ready to go. She was educated about the worrisome signs and symptoms come back to emergency room for and was discharged in stable condition. Status at Discharge Overall status at discharge: patient is progressing back to baseline Time Spent with Patient Time attestation: Total time spent providing and/or coordinating discharge services:38 min Time spent: Greater than 30 minutes Exam Narrative: General: Well developed well nourished patient in NAD HEENT: normocephalic Neck: supple Neuro: Alert and oriented x4 CV:RRR. convex chest with no erythema or pain. Resp:CTA Abd: Soft, non distended. No pain to palpation. Positive bowel sounds Extremities: right leg with bandage attached with no excessive erythema, bleeding or bruising. Pulses and sensation intact. DS: Data Data Completed and Pending Labs on day of discharge: Labs from last 24 hours 05/18/21 05:22 Sodium 130 L Potassium 4.1 Chloride 97 L Carbon Dioxide 25 Anion Gap 8 BUN 23 H Creatinine 1.00 Estim Creat Clear Calc 45 Estimated GFR 55 L Glucose 98 Calcium 8.6 Discharge Plan Discharge Attending physician on discharge: Haja Lynn Consulting providers: Hay Robins Discharging Clinician: Ani Arce Patient Disposition: Home Health Service Activity: other - see discharge instructions
--- NOTE | 2021-05-18 12:59 | PM.PNORT ---
Progress Note: A&P Assessment and Plan (1) Subcapital fracture of neck of right femur: Qualifiers: Encounter type: initial encounter Fracture type: closed Qualified Code(s): S72.011A - Unspecified intracapsular fracture of right femur, initial encounter for closed fracture Code(s): S72.011A - Unspecified intracapsular fracture of right femur, initial encounter for closed fracture Status: Acute Assessment and Plan: No changes since yesterday's exam. We will continue to see patient in 2 weeks in our office for follow-up and staple removal. She will take the 325 mg aspirin daily for DVT prophylaxis. She will be toe-touch with a walker for 8 weeks. She does have difficulty with going up stairs but I suspect this will get better with time, especially once she is able to be full weight-bearing on her leg. Her was also kind enough to build a ramp to get in and out of the house with a wheelchair. Subjective Subjective Date/Time Seen: 05/18/21 12:59 70-year-old female postop day 4 after right hip pinning. No new complaints. Dressing was changed this morning. No redness or swelling around incision site. was at bedside and she is ready to get home since he has felt a ramp for her to get in and out of the house. She did get nauseous while taking [place], but she has good pain control with Tylenol alone. Review of Systems Constitutional: Constitutional: Denies chills and Denies fever(s) ENT: Reports system reviewed and no additional complaints, except as documented Cardiovascular: Cardiovascular: Denies chest pain Respiratory: Respiratory: Reports no additional respiratory complaints Gastrointestinal: Gastrointestinal: Denies abdominal pain Musculoskeletal: Musculoskeletal: Reports abnormal gait (uses walker, toe touch. However, unable to walk upstairs due to UE weakness) Integumentary/Breasts: Skin/Breast: Reports wounds ( Surgical wound to anterior right hip) Neurologic: Denies numbness, Denies tingling and Denies paresthesias Exam Const: General: cooperative, comfortable and no acute distress Nutritional Appearance: well nourished Orientation/consciousness: patient oriented x3 Limitations: no limitations HENMT: Head: normal to inspection Ears: hearing grossly normal bilaterally Face and sinus: face symmetric Mouth: Yes moist mucous membranes Teeth and gingiva: poor dentition Eyes: Alignment and Position: alignment normal and position normal Sclera: sclerae normal Neck: Neck: normal visual inspection and nontender Chest: Chest palpation & inspection: normal inspection of the chest Resp: Effort & Inspection: normal respiratory effort and able to speak in complete sentences GI: Inspection: other ( Nondistended, nontender) Skin: General skin exam: normal color Rashes: no rashes Neuro: General: patient oriented x3 Cognition (Neuro): normal cognition Speech: normal speech Gait exam (Neuro): Other gait observations present Extrem: General: normal to inspection and other Other: Exam of the right hip shows a clean and dry incision. Tyson intact and no drainage present. motor and sensory function of the right hip is intact. Calves negative. New Xeroform dressing applied today. Psych: Appearance: grossly normal Mental Status: mental status grossly normal Objective Data Vital Signs Vital Signs: Vital Signs - 24 hr 05/17/21 22:00 05/18/21 06:00 05/18/21 10:00 Temperature 97.6 F 96.7 F L 98.0 F Pulse Rate 80 73 90 Respiratory Rate 16 18 16 Blood Pressure 122/63 115/70 118/71 Pulse Oximetry 96 94 98 Intake/Output Intake/Output: Intake & Output 05/15/21 05/16/21 05/17/21 05/18/21 23:59 23:59 23:59 23:59 Intake Total 1070 800 600 Output Total 2100 450 400 Balance -1030 350 200 Meds/Results Medications: Active Medications Generic Name Dose Route Start Last Admin Trade Name Freq PRN Reason Stop Dose Admin Acetaminophen 650 mg
== END 2021-05-18 13:05 | disposition home health service (06) | DRG 481 ==
PROVIDERS: Nurse Practitioner; Orthopaedic Surgery; Admitting Provider Internal Medicine; Visit Provider Physician Assistant
PROC: 0QH634Z Insertion of Internal Fixation Device into Right Upper Femur, Percutaneous Approach (ICD-10-PCS; principal; 2021-05-14 09:30)
DX: S72.011A Unspecified intracapsular fracture of right femur, initial encounter for closed fracture (principal); E87.1 Hypo-osmolality and hyponatremia; W10.8XXA Fall (on) (from) other stairs and steps, initial encounter; I10 Essential (primary) hypertension; M81.0 Age-related osteoporosis without current pathological fracture; E03.9 Hypothyroidism, unspecified; D64.9 Anemia, unspecified; E78.5 Hyperlipidemia, unspecified; M19.90 Unspecified osteoarthritis, unspecified site; N32.81 Overactive bladder; M54.50 Low back pain, unspecified; G89.29 Other chronic pain
CPT/HCPCS: 36415; 71045; 73502; 80048; 80053; 81003; 83735; 84443; 85025; 85027; 86850; 86900; 86901; 93005; 97110; 97116; 97162; 97165; 97530; A9270; C1713; J0690; J1100; J1170; J2250; J2370; J2405; J2704; J3010; J7120